=== PATIENT | female | born 1960 | race Caucasian/White ===

== ENCOUNTER 2024-07-13 11:17 | Outpatient (OUT) | payer BC, SELFPAY ==
--- NOTE | 2024-07-13 11:24 | MM_ITS ---
Patient Name: FARHAD CYR MR#: [id number] : 1960 Exam Date: 07/13/2024 Ordering Doctor: Carlyn Bourne RADIOLOGY REPORT PROCEDURE: MM TOMOSYNTHESIS SCREENING BI COMPARISON: [facility] MAMM SCREEN 3D [facility] CAD, 02/06/2021. MG MAMM [facility] SCRN W CAD DIG, 05/26/2013. MG MAMM [facility] DIAG W CAD DIG, 09/01/2010. INDICATIONS: Screening Calculator Name NCI Breast Cancer Risk Assessment Tool 5 Year Breast Cancer Risk 1.20% Lifetime Breast Cancer Risk 5.40% Personal Breast Cancer No Personal Ovarian Cancer No Treatments None Family Cancers Mother with lung cancer at age 80. LOCATION: [facility] BREAST COMPOSITION: The breasts are extremely dense, which lowers the sensitivity of mammography. FINDINGS: DIAGNOSTIC CATEGORY 2--BENIGN FINDING: RIGHT BREAST: No significant suspicious finding. Scattered benign-appearing calcifications are present. No significant change has occurred. LEFT BREAST: No significant suspicious finding. Scattered benign-appearing calcifications are present. No significant change has occurred. RECOMMENDATIONS: ROUTINE MAMMOGRAM AND CLINICAL EVALUATION IN 12 MONTHS. PLEASE NOTE: A NORMAL MAMMOGRAM DOES NOT EXCLUDE THE POSSIBILITY OF BREAST CANCER. A CLINICALLY SUSPICIOUS PALPABLE LUMP SHOULD BE BIOPSIED. Dictated by: Remberto Johnston M.D. on 07/14/2024 at 16:17 Approved by: Remberto Johnston M.D. on 07/14/2024 at 16:23
== END 2024-07-13 11:18 | disposition home or self-care (01) ==
LOC: MAMMO 11:20
PROVIDERS: PCP Nurse Practitioner Family; Visit Provider Nurse Practitioner Family
DX: Z12.31 Encounter for screening mammogram for malignant neoplasm of breast (principal); Z80.1 Family history of malignant neoplasm of trachea, bronchus and lung
CPT/HCPCS: 77063; 77067